=== PATIENT | female | born 1980 | race Caucasian/White ===

== ENCOUNTER → 2018-08-21 | Outpatient (CLI) | payer OTHER ==
--- NOTE | 2018-08-21 12:32 | RAD ---
Findings: Number of images: Three Location: Left hand third digit Acute, comminuted and minimally displaced fracture of the left hand third digit distal phalanx. No additional fracture identified. Adjacent soft tissue swelling is present. Joint compartments are maintained. IMPRESSION: Acute minimally displaced fracture of the left hand third digit distal phalanx. Electronically signed by: Renny Quesada MD 08/21/2018 12:30 PM CDT
== END ==
LOC: RAD 10:48
PROVIDERS: ATTEND Nurse Practitioner Family
DX: S62.635B Displaced fracture of distal phalanx of left ring finger, initial encounter for open fracture (principal)